=== PATIENT | male | born 1955 | race Caucasian/White ===

== ENCOUNTER → 2017-09-04 16:01 | Outpatient (CLI) | payer OTHER, SELFPAY ==
[2017-09-04 17:48] LABS: Absolute Lymphocyte Count 1.36 X10^3/ul (0.83-4.51); Absolute Neutrophil Count 4.7 X10^3/uL (2.0-7.7); Basophil# 0.03 X10^3/uL; Basophil% 0.4 % (0-1); Eosinophils% 5.5 % (0-5); Hematocrit 42.5 % (40-54); Hemoglobin 14.7 g/dl (13.0-16.5); Lymphocyte # 1.36 X10^3/ul (4.0); Lymphocyte % 18.6 % (19-41); Mean Corp Hgb Conc 34.6 g/gl (32-36); Mean Corpuscular Hgb 30.4 pg (27.0-32.0); Mean Platelet Vol. 10.3 fl (6.2-12.0); Monocyte# 0.79 X10^3/uL; Monocyte% 10.8 % (0-10); Neutrophil # 4.72 X10^3/uL (2.7-7.7); Neutrophil % 64.4 % (47-70); Platelet Count 170 K/mm3 (150-450); RBC Distribution Width CV 12.8 % (11.6-14.6); RBC Distribution Width SD 40.9 fl (35.1-43.9); Red Blood Count 4.83 M/mm3 (4.6-6.2); White Blood Count 7.3 K/mm3 (4.4-11.0)
[2017-09-04 17:57] LABS: POSITIVE COUNT NO; POSITIVE DIFFERENTIAL NO; POSITIVE MORPHOLOGY NO
[2017-09-04 17:58] LABS: PTHIN 41.1 pg/mL (18.4-80.1); Vitamin D,25 Hydroxy 39.6 ng/mL (29.95-100.01)
[2017-09-04 18:03] LABS: AST(SGOT) 23 U/L (15-37); Alanine Aminotransfer ALT/SGPT 54 U/L (16-61); Albumin, Serum 4.2 g/dL (3.2-5.0); Alkaline Phosphatase 68 U/L (45-117); Anion Gap 8 (5-15); BUN 21 mg/dL (7-18); BUN/Creat Ratio 23.8 RATIO (10-20); Bilirubin, Direct 0.13 mg/dL (0.00-0.30); Calcium,Total 8.7 mg/dL (8.5-10.1); Chloride 98 mmol/L (98-107); Cholesterol 152 mg/dL (200); Creatinine, Serum 0.88 mg/dL (0.70-1.30); EST Glomerular Filtration Rate 93 mL/min (>60); Est Glom Filt Rate - Afr Amer 113 mL/min (>60); Glucose 78 mg/dL (74-106); High Density Lipoprotein 50 mg/dL; Magnesium 2.2 mg/dL (1.6-2.6); Phosphorus 3.6 mg/dL (2.5-4.9); Potassium 3.7 mmol/L (3.5-5.1); Protein, Total 7.2 g/dL (6.4-8.2); Sodium Level 136 mmol/L (136-145); Triglycerides 123 mg/dL; Very Low Density Lipoprotein 25 mg/dL (5-40)
[2017-09-04 18:07] LABS: Protein, Urine (Random) < 6.0 mg/dL (<11.9); Protein:Creat Ratio 162 mg/g CRE (0-200)
== END ==
PROVIDERS: Family Provider Family Medicine; PCP Family Medicine; Visit Provider Internal Medicine Cardiovascular Disease
DX: E78.5 Hyperlipidemia, unspecified (principal); Z79.899 Other long term (current) drug therapy; N18.2 Chronic kidney disease, stage 2 (mild); D63.1 Anemia in chronic kidney disease; E55.9 Vitamin D deficiency, unspecified
CPT/HCPCS: 36415; 80048; 80061; 80076; 82306; 82570; 83735; 83970; 84100; 84156; 85025

== ENCOUNTER → 2017-10-25 12:35 | Outpatient (CLI) | payer OTHER, SELFPAY ==
--- NOTE | 2017-10-25 12:36 | STE_ITS ---
Reason For Study: S/P CABG Stress Results Protocol: Ki Protocol Maximum Predicted HR: 159 bpm Target HR: 135 bpm% Max imum Predicted HR: 97 % DurationHeart Rate Stage (mm:ss) (bpm) BP BASELINE 92 130/74 STAGE 1 3:00 11 0 130/72 STAGE 2 3:00 13 4 138/70 STAGE 3 3:00 15 5 142/60 RECOVERY 112 120/7 2 Stress Duration: 9:00 mm:ss Maximum Stress HR: 155 bpm Baseline Echocardiogram Findings The estimated ejection fraction is 65 %. Stress Echo Wall motion Data Resting WMIntermediate WMStress WM Resting Wall Motion Wall Motion Stress No regional wall motion No regional wall motion abnormalities noted. abnormalities noted. EKG Data The baseline ECG demonstrates normal sinus rhythm with at rate of _ beats per minute. The patient exercised according to the regular Ki protocol for a total duration of 9:01. The maximum heart rate attained was 196 beats per minute. This was 123% of maximum predicted heart rate. The patient exercised into stage 4 of the Ki protocol. During stress, there were no ST or T wave changes noted to suggest ischemia. No clinical angina was noted. Interpretation Summary The estimated ejection fraction is 65 %. Normal adequate treadmill echocardiogram. Negative for ischemia by EKG and echocardiographic criteria. No anginal symptoms noted. Rare PVC noted, self terminating burst of SVT during recovery which was asymptomatic. Appropriate blood pressure response to exercise. Average exercise capacity for age. Final LVEF of 75%. Test terminated due to target heart rate achieved and dyspnea. No complications. Ordering Physician: Shaan Brito Referring Physician: Shaan Brito Performed By: Kamila Mehta, RDCS, RVT
== END ==
PROVIDERS: Family Provider Family Medicine; PCP Family Medicine; Visit Provider Internal Medicine Cardiovascular Disease
DX: I25.10 Atherosclerotic heart disease of native coronary artery without angina pectoris (principal)
CPT/HCPCS: 93017; 93350

== ENCOUNTER → 2018-05-01 15:08 | Outpatient (CLI) | payer OTHER, SELFPAY ==
[2018-05-01 18:17] LABS: AST(SGOT) 26 U/L (15-37); Alanine Aminotransfer ALT/SGPT 47 U/L (16-61); Albumin, Serum 3.8 g/dL (3.2-5.0); Alkaline Phosphatase 68 U/L (45-117); Bilirubin, Direct 0.13 mg/dL (0.00-0.30); Globulin 3.2 g/dL (2.2-4.2)
[2018-05-01 18:21] LABS: Anion Gap 8 (5-15); BUN 19 mg/dL (7-18); BUN/Creat Ratio 20.1 RATIO (10-20); Calcium,Total 8.6 mg/dL (8.5-10.1); Chloride 102 mmol/L (98-107); Cholesterol 247 mg/dL (200); Creatinine, Serum 0.94 mg/dL (0.70-1.30); EST Glomerular Filtration Rate 86 mL/min (>60); Est Glom Filt Rate - Afr Amer 104 mL/min (>60); Glucose 78 mg/dL (74-106); High Density Lipoprotein 41 mg/dL; Potassium 3.9 mmol/L (3.5-5.1); Sodium Level 139 mmol/L (136-145); Triglycerides 146 mg/dL; Very Low Density Lipoprotein 29 mg/dL (5-40)
== END ==
PROVIDERS: Family Provider Family Medicine; PCP Family Medicine; Referring Provider Nurse Practitioner Family; Visit Provider Nurse Practitioner Family
DX: E78.5 Hyperlipidemia, unspecified (principal); Z79.899 Other long term (current) drug therapy
CPT/HCPCS: 36415; 80048; 80061; 80076

== ENCOUNTER → 2018-09-13 15:57 | Outpatient (CLI) | payer BC, SELFPAY ==
[2018-05-08 16:14] VITALS: BMI 27.6
[2018-09-13 17:43] LABS: Hematocrit 44.4 % (40-54); Hemoglobin 14.6 g/dl (13.0-16.5); Mean Corp Hgb Conc 32.9 g/gl (32-36); Mean Corpuscular Hgb 29.9 pg (27.0-32.0); Mean Corpuscular Volume 90.8 fL (80-94); Mean Platelet Vol. 10.1 fl (6.2-12.0); Platelet Count 165 K/mm3 (150-450); RBC Distribution Width SD 42.8 fl (35.1-43.9); Red Blood Count 4.89 M/mm3 (4.6-6.2); White Blood Count 6.5 K/mm3 (4.4-11.0)
[2018-09-13 18:00] LABS: Albumin, Serum 4.1 g/dL (3.2-5.0); BUN 25 mg/dL (7-18); Calcium,Total 8.7 mg/dL (8.5-10.1); Chloride 101 mmol/L (98-107); Cholesterol 180 mg/dL (200); Creatinine, Serum 1.04 mg/dL (0.70-1.30); EST Glomerular Filtration Rate 77 mL/min (>60); Est Glom Filt Rate - Afr Amer 93 mL/min (>60); Glucose 84 mg/dL (74-106); High Density Lipoprotein 52 mg/dL; Magnesium 2.2 mg/dL (1.6-2.6); Phosphorus 3.7 mg/dL (2.5-4.9); Potassium 3.9 mmol/L (3.5-5.1); Sodium Level 139 mmol/L (136-145); Triglycerides 101 mg/dL; Very Low Density Lipoprotein 20 mg/dL (5-40)
[2018-09-13 18:05] LABS: Scan Indicated on CBC? Y/N NO
[2018-09-13 18:13] LABS: Vitamin D,25 Hydroxy 19.7 ng/mL (29.95-100.01)
[2018-09-13 18:15] LABS: PTHIN 52.4 pg/mL (18.4-80.1)
[2018-09-13 18:35] LABS: Microalbumin,Random Urine 56.5 mg/L (NO RANGE EST.); Microalbumin:Creatinine Ratio 95.3 mg/g CRE (<30 mg/g CRE)
== END ==
PROVIDERS: Family Provider Family Medicine; PCP Family Medicine; Referring Provider Internal Medicine Nephrology; Visit Provider Internal Medicine Nephrology
DX: E55.9 Vitamin D deficiency, unspecified (principal); N18.2 Chronic kidney disease, stage 2 (mild); D63.1 Anemia in chronic kidney disease; E78.5 Hyperlipidemia, unspecified
CPT/HCPCS: 36415; 80061; 80069; 82043; 82306; 82570; 83735; 83970; 85027

== ENCOUNTER → 2019-04-15 17:08 | Outpatient (CLI) | payer BC, SELFPAY ==
[2019-01-11 14:23] VITALS: BMI 33.5
--- NOTE | 2019-04-15 17:11 | RAD_ITS ---
STUDY: X-RAY CHEST REASON FOR EXAM: Male, 64 years old. Cough TECHNIQUE: Frontal and lateral views of the chest were performed COMPARISON: 23 September 2014 FINDINGS: There is indistinctness/obscuration of the left cardiac border, similar to 2015 and most probably due to prior open heart surgery. There is no pneumonia, pneumothorax, pulmonary edema or pleural effusions. Cardiac size is normal. Appearance is similar to prior. RAD/Chest PA and Lateral IMPRESSION: 1. No acute findings or change since prior. 2. If high probability of acute pneumonia is present short-term repeat imaging with oblique views or CT is advised as lingular pneumonia can be missed on the current plain films. Electronically Signed: Ade Lamb, at 17:37 EDT Tel , Service support ,
== END ==
PROVIDERS: Family Provider Family Medicine; PCP Family Medicine; Referring Provider Family Medicine; Visit Provider Family Medicine
DX: R05 Cough (principal)
CPT/HCPCS: 71046

== ENCOUNTER → 2019-04-26 14:38 | Outpatient (CLI) | payer BC, SELFPAY ==
[2019-01-11 14:23] VITALS: BMI 33.5
--- NOTE | 2019-04-26 14:40 | CDU_ITS ---
Reason For Study: Bruit Rt. Velocities/BP Lt. Velocities/BP Prox CCA 110.1/18.8 cm/sec. Prox CCA 124.7/29.8 cm/sec. Mid CCA 88.2/20.6 cm/sec. Mid CCA 106.5/24.3 cm/sec. Dist CCA 87.6/20 cm/sec. Dist CCA 93.7/26.1 cm/sec. Prox ICA 61.8/13.9 cm/sec. Prox ICA 82.7/20 cm/sec. Mid ICA 77.7/28.6 cm/sec. Mid ICA 69.1/23.7 cm/sec. Dist ICA 74.1/21.2 cm/sec. Dist ICA 60.5/22.5 cm/sec. Rt. ICA/CCA = 0.9. Lt. ICA/CCA = 0.8. Prox ECA 79/15.1 cm/sec. Prox ECA 104.7/20.6 cm/sec. Rt. Vert. 47.6/15.7 cm/sec. Lt. Vert. 27.7/9.7 cm/sec. Right Extracranial There is homogeneous, smooth atherosclerotic plaque noted in the right common carotid artery. There is heterogeneous, irregular atherosclerotic plaque noted in the right internal carotid artery. There is intimal thickening but no significant atherosclerotic plaque noted in the right external carotid artery. Antegrade flow is noted in the right vertebral artery. Left Extracranial There is homogeneous, smooth atherosclerotic plaque noted in the left common carotid artery. There is heterogeneous, irregular atherosclerotic plaque noted in the left internal carotid artery. There is intimal thickening but no significant atherosclerotic plaque noted in the left external carotid artery. Antegrade flow is noted in the left vertebral artery. Procedure Carotid Duplex [id number]. Exam performed in department. Interpretation Summary Irregular plague proximal right internal carotid with <50% stenosis. <50% stenosis right external carotid Irregular plague proximal left internal carotid with <50% stenosis. <50% stenosis left external carotid Patent,antegrade, <50% stenosis bilateral vertebrals Ordering Physician: Shaan Brito Referring Physician: Kenan Hendrix MD Performed By: Carmel Tomas RVT
--- NOTE | 2019-04-26 14:40 | ECHOD_ITS ---
Reason For Study: S/P CABG Procedure This was a 2D Doppler, Color Flow transthoracic echocardiogram. Exam performed in department. Left Ventricle Normal size and thickness. The estimated ejection fraction is 60 %. Stage 1 diastolic dysfunction. No regional wall motion abnormalities noted. Right Ventricle Normal size and thickness. Normal systolic function. Atria Normal left atrium. Normal right atrium. Normal atrial septum. Mitral Valve The mitral valve is structurally normal. No prolapse or stenosis seen. Trivial mitral valve insufficiency. Tricuspid Valve Normal tricuspid valve. Mild (1+) tricuspid valve insufficiency. Right ventricular systolic pressure estimated to be 24 mmHg. Aortic Valve Trisinus/trileaflet aortic valve. Mild focal aortic valve thickening. Pulmonic Valve Normal pulmonic valve. Great Vessels Normal aortic root. Normal arch. Normal inferior vena cava. Inferior vena cava collapse with sniff. Pericardium/Pleural No pericardial effusion. MMode/2D Measurements & Calculations LVIDd: 4.5 cm IVSd: 1.1 cm Ao root diam: 4.0 cm LVIDs: 3.1 cm LVPWd: 0.96 cm LA dimension: 4.4 cm FS: 30.4 % LAV(MOD-bp): 77.8 ml LA A4 area: 23.7 cm2 RA A4 area: 17.1 cm2 LAV(MOD-bp) Indexed: 38.3 ml/m2 LAV(MOD-sp2): 73.0 ml LAV(MOD-sp4): 77.2 ml Time Measurements MV dec time: 0.22 sec Doppler Measurements & Calculations MV E max josé miguel: 60.9 cm/sec Lat Peak E' José Miguel: 8.4 cm/sec Med Peak E' José Miguel: 7.2 cm/sec MV A max josé miguel: 81.9 cm/sec E/E' lat: 7.3 E/E' med: 8.5 MV E/A: 0.74 MV V2 max: 80.9 cm/sec MV P1/2t max josé miguel: 69.9 cm/sec Ao V2 max: 107.9 cm/sec MV max P.6 mmHg MV P1/2t: 111.9 msec Ao max P.7 mmHg MV V2 mean: 45.8 cm/sec MV dec slope: 182.8 cm/sec2 Ao V2 mean: 71.4 cm/sec MV mean P.97 mmHg MVA(P1/2t): 2.0 cm2 Ao mean P.3 mmHg MV V2 VTI: 28.0 cm Ao V2 VTI: 23.8 cm LV V1 max: 88.5 cm/sec PA V2 max: 82.8 cm/sec TR max josé miguel: 217.8 cm/sec LV V1 max P.1 mmHg TR max P.0 mmHg LV V1 mean P.5 mmHg LV V1 mean: 57.5 cm/sec LV V1 VTI: 22.4 cm Interpretation Summary The estimated ejection fraction is 60 %. Stage 1 diastolic dysfunction. Trivial mitral valve insufficiency. Mild (1+) tricuspid valve insufficiency. Right ventricular systolic pressure estimated to be 24 mmHg. There is no comparison study available. Ordering Physician: Shaan Brito Referring Physician: Kenan Hendrix MD Performed By: Kian Fountain RCS
== END ==
PROVIDERS: Family Provider Family Medicine; PCP Family Medicine; Referring Provider Internal Medicine Cardiovascular Disease; Visit Provider Internal Medicine Cardiovascular Disease
DX: I25.10 Atherosclerotic heart disease of native coronary artery without angina pectoris (principal); I25.2 Old myocardial infarction; E78.5 Hyperlipidemia, unspecified; Z95.1 Presence of aortocoronary bypass graft; R09.89 Other specified symptoms and signs involving the circulatory and respiratory systems
CPT/HCPCS: 93306; 93880

== ENCOUNTER → 2019-05-03 09:07 | Outpatient (CLI) | payer BC, SELFPAY ==
[2019-01-11 14:23] VITALS: BMI 33.5
--- NOTE | 2019-05-03 09:08 | STEWCON_ITS ---
Reason For Study: S/P CABG, CAD Stress Results Protocol: Ki Protocol Maximum Predicted HR: 157 bpm Target HR: 133 bpm % Maximum Predicted HR: 90 % DurationHeart Rate Stage (mm:ss) (bpm) BP Comment Baseline 96 124/76No Chest Pain; 4 ML Diluted Definity Given Ki Protocol Stage I 3:00 105 138/66No Chest Pain Ki Protocol Stage II 3:00 120 140/60No Chest Pain Ki Protocol Stage III 3:00 141 150/62No Chest Pain Recovery 94 128/80No Chest Pain Stress Duration: 9:00 mm:ss Maximum Stress HR: 141 bpm METS: 10 Baseline Echocardiogram Findings The estimated ejection fraction is 55 %. Stress Echo Wall motion Data Resting WM Intermediate WM Stress WM Resting Wall Motion Wall Motion Stress Posterior-Basal: Mildly No regional wall motion hypokinetic. abnormalities noted. Infero-Basal: Mildly hypokinetic. EKG Data The baseline ECG displays normal sinus rhythm. The patient exercised according to the regular Ki protocol for a total duration of 9:00. The maximum heart rate attained was 151 beats per minute. This was 96% of maximum predicted heart rate. The patient exercised into stage 4 of the Ki protocol. During stress, there were no ST or T wave changes noted to suggest ischemia. No clinical angina was noted. Interpretation Summary The estimated ejection fraction is 55 %. Normal, adequate, treadmill echocardiogram. Negative for ischemia by EKG and echocardiographic anterior. No anginal symptoms noted. Rare PVC noted. Appropriate blood pressure response to exercise. Average exercise capacity for age. Patient had baseline lateral T wave inversion which had pseudonormalization during exercise with no associated wall motion abnormalities. Patient had baseline inferior posterior hypokinesis which responded well to exercise. Test terminated due to attainment of target heart rate. Final LVEF of 65%. No complications. The study was technically difficult. Contrast injection was performed. Ordering Physician: Shaan Brito Referring Physician: Kenan Hendrix Performed By: Destinee Evans, ALEXA, RVT
== END ==
PROVIDERS: Family Provider Family Medicine; PCP Family Medicine; Referring Provider Internal Medicine Cardiovascular Disease; Visit Provider Internal Medicine Cardiovascular Disease
DX: I25.10 Atherosclerotic heart disease of native coronary artery without angina pectoris (principal); E78.5 Hyperlipidemia, unspecified; I25.2 Old myocardial infarction; Z95.1 Presence of aortocoronary bypass graft
CPT/HCPCS: 93017; 93350; Q9957; A4216; C8928

== ENCOUNTER → 2019-11-16 08:54 | Outpatient (CLI) | payer BC, SELFPAY ==
[2019-11-08 14:25] VITALS: BMI 38.7
[2019-11-16 09:24] LABS: Hematocrit 43.1 % (40-54); Hemoglobin 14.6 g/dL (13.0-16.5); Mean Corp Hgb Conc 33.9 g/dL (32-36); Mean Corpuscular Hgb 30.1 pg (27.0-32.0); Mean Corpuscular Volume 88.9 fL (80-94); Mean Platelet Vol. 9.7 fl (6.2-12.0); Platelet Count 191 K/mm3 (150-450); RBC Distribution Width CV 13.5 % (11.6-14.6); RBC Distribution Width SD 44.2 fl (35.1-43.9); Red Blood Count 4.85 M/mm3 (4.6-6.2); White Blood Count 6.5 K/mm3 (4.4-11.0)
[2019-11-16 09:43] LABS: Microalbumin:Creatinine Ratio 244.3 mg/g CRE (<30 mg/g CRE)
[2019-11-16 09:48] LABS: AST(SGOT) 23 U/L (15-37); Alanine Aminotransfer ALT/SGPT 42 U/L (16-61); Albumin, Serum 3.7 g/dL (3.2-5.0); Alkaline Phosphatase 69 U/L (45-117); Anion Gap 7 (5-15); BUN 17 mg/dL (7-18); BUN/Creat Ratio 15.3 RATIO (10-20); Bilirubin, Direct 0.11 mg/dL (0.00-0.30); Calcium,Total 8.5 mg/dL (8.5-10.1); Chloride 104 mmol/L (98-107); Cholesterol 233 mg/dL (200); Creatinine, Serum 1.11 mg/dL (0.70-1.30); EST Glomerular Filtration Rate 71 mL/min (>60); Est Glom Filt Rate - Afr Amer 86 mL/min (>60); Globulin 3.3 g/dL (2.2-4.2); Glucose 105 mg/dL (74-106); High Density Lipoprotein 37 mg/dL; Phosphorus 2.5 mg/dL (2.5-4.9); Potassium 3.9 mmol/L (3.5-5.1); Sodium Level 138 mmol/L (136-145); Triglycerides 231 mg/dL; Very Low Density Lipoprotein 46 mg/dL (5-40)
[2019-11-18 08:54] LABS: PTHIN 60.8 pg/mL (18.4-80.1)
[2019-11-18 09:38] LABS: Vitamin D,25 Hydroxy 36.8 ng/mL
== END ==
PROVIDERS: Internal Medicine Cardiovascular Disease; PCP Family Medicine; Referring Provider Internal Medicine Nephrology; Visit Provider Internal Medicine Nephrology
DX: E55.9 Vitamin D deficiency, unspecified (principal); N18.2 Chronic kidney disease, stage 2 (mild); D63.1 Anemia in chronic kidney disease; E78.5 Hyperlipidemia, unspecified; I25.10 Atherosclerotic heart disease of native coronary artery without angina pectoris
CPT/HCPCS: 80048; 80061; 80076; 82043; 82306; 82570; 83735; 83970; 84100; 85027

== ENCOUNTER → 2020-06-11 09:51 | Outpatient (CLI) | payer BC, SELFPAY ==
[2019-11-08 14:25] VITALS: BMI 38.7
[2020-06-11 12:18] LABS: Hematocrit 43.8 % (40-54); Hemoglobin 14.8 g/dL (13.0-16.5); Mean Corp Hgb Conc 33.8 g/dL (32-36); Mean Corpuscular Hgb 30.5 pg (27.0-32.0); Mean Corpuscular Volume 90.3 fL (80-94); Mean Platelet Vol. 10.1 fl (6.2-12.0); Platelet Count 217 K/mm3 (150-450); RBC Distribution Width SD 46.2 fl (35.1-43.9); Red Blood Count 4.85 M/mm3 (4.6-6.2); White Blood Count 7.2 K/mm3 (4.4-11.0)
[2020-06-11 12:41] LABS: ALB/GLOB Ratio 1.1 RATIO (0.9-2.4); AST(SGOT) 25 U/L (15-37); Alanine Aminotransfer ALT/SGPT 45 U/L (16-61); Albumin, Serum 3.6 g/dL (3.2-5.0); Alkaline Phosphatase 72 U/L (45-117); Anion Gap 8 (5-15); BUN 15 mg/dL (7-18); BUN/Creat Ratio 17.1 RATIO (10-20); Bilirubin, Direct 0.14 mg/dL (0.00-0.30); Calcium,Total 8.6 mg/dL (8.5-10.1); Chloride 101 mmol/L (98-107); Cholesterol 236 mg/dL (200); Creatinine, Serum 0.88 mg/dL (0.70-1.30); EST Glomerular Filtration Rate 93 mL/min (>60); Est Glom Filt Rate - Afr Amer 113 mL/min (>60); Globulin 3.4 g/dL (2.2-4.2); Glucose 92 mg/dL (74-106); High Density Lipoprotein 40 mg/dL; Potassium 3.8 mmol/L (3.5-5.1); Sodium Level 134 mmol/L (136-145); Triglycerides 392 mg/dL; Very Low Density Lipoprotein 78 mg/dL (5-40)
[2020-06-11 12:42] LABS: Hemoglobin A1c 5.5 % (3.8-5.6)
== END ==
PROVIDERS: PCP Family Medicine; Referring Provider Family Medicine; Visit Provider Family Medicine
DX: I25.10 Atherosclerotic heart disease of native coronary artery without angina pectoris (principal); Z12.5 Encounter for screening for malignant neoplasm of prostate
CPT/HCPCS: 36415; 80053; 80061; 82043; 82248; 83036; 84153; 85027; G0103

== ENCOUNTER 2021-07-12 10:41 | Outpatient (CLI) | payer MEDICARE, SELFPAY ==
--- NOTE | 2021-07-12 10:52 | RAD_ITS ---
STUDY: X-RAY CHEST REASON FOR EXAM: Male, 66 years old. COVID PNEUMONIA TECHNIQUE: PA and lateral views of the chest. COMPARISON: 04/15/2019. FINDINGS: The lungs are clear and expanded. No new infiltrate or mass. There is no demonstrated pleural abnormality. Sternal cerclage wires are present from a prior sternotomy. The heart is normal in size. Normal mediastinum and vince. Normal visualized pulmonary arteries. Normal visualized aortic arch and descending thoracic aorta. Normal visualized thoracic spine. Normal visualized ribs, clavicles, and shoulders. There is no demonstrated abnormality of the visualized soft tissue structures of the upper abdomen. RAD/Chest PA and Lateral IMPRESSION: No acute cardiopulmonary disease or interval change Electronically Signed: Baltazar Hicks DO at 23:08 EST Tel [phone], Service support ,
== END 2021-07-12 23:59 | disposition home or self-care (01) ==
PROVIDERS: PCP Family Medicine; Referring Provider Internal Medicine Pulmonary Disease; Visit Provider Internal Medicine Pulmonary Disease
DX: U07.1 COVID-19 (principal); J12.82 Pneumonia due to coronavirus disease 2019
CPT/HCPCS: 71046

== ENCOUNTER 2021-07-13 11:21 | Outpatient (CLI) | payer MEDICARE, SELFPAY ==
[2021-07-13 11:45] VITALS: BP 140/89; PULSE 80; RESP 16; TEMP 37.1; O2SAT 99; BMI 40.3
[2021-07-13] MEDS: 0.9% Saline Lock 10 ML Syringe IV (11:52)
[2021-07-13 12:44] VITALS: BP 123/77; PULSE 71; RESP 16; TEMP 37; O2SAT 95
[2021-07-13 13:41] VITALS: BP 134/85; PULSE 68; RESP 16; TEMP 37.1; O2SAT 96
== END 2021-07-13 23:59 | disposition home or self-care (01) ==
LOC: MS3OUT 11:22 → MS3 11:22
PROVIDERS: PCP Family Medicine; Referring Provider Nurse Practitioner Adult Health; Visit Provider Nurse Practitioner Adult Health
DX: U07.1 COVID-19 (principal)
CPT/HCPCS: J7050; M0243; A4216; Q0240

== ENCOUNTER → 2022-05-05 | Outpatient (CLI) | payer MEDICARE, BC, SELFPAY ==
[2022-05-05 12:13] LABS: Hematocrit 41.7 % (40-54); Hemoglobin 14.1 g/dL (13.0-16.5); Mean Corp Hgb Conc 33.8 g/dL (32-36); Mean Corpuscular Volume 91.6 fL (80-94); Mean Platelet Vol. 9.6 fl (6.2-12.0); Platelet Count 185 K/mm3 (150-450); RBC Distribution Width CV 13.9 % (11.6-14.6); Red Blood Count 4.55 M/mm3 (4.6-6.2); White Blood Count 6.5 K/mm3 (4.4-11.0)
[2022-05-05 12:57] LABS: AST(SGOT) 26 U/L (15-37); Alanine Aminotransfer ALT/SGPT 43 U/L (16-61); Albumin, Serum 3.5 g/dL (3.2-5.0); Alkaline Phosphatase 68 U/L (45-117); Anion Gap 6 (5-15); BUN 22 mg/dL (7-18); BUN/Creat Ratio 21.8 RATIO (10-20); Calcium,Total 9.1 mg/dL (8.5-10.1); Chloride 103 mmol/L (98-107); Cholesterol 152 mg/dL (200); Creatinine, Serum 1.01 mg/dL (0.70-1.30); EST Glomerular Filtration Rate 79 mL/min (>60); Est Glom Filt Rate - Afr Amer 95 mL/min (>60); Globulin 3.4 g/dL (2.2-4.2); Glucose 110 mg/dL (74-106); High Density Lipoprotein 39 mg/dL; PSA,Total - Annual Screen 2.81 ng/mL (0.00-4.00); Potassium 4.1 mmol/L (3.5-5.1); Protein, Total 6.9 g/dL (6.4-8.2); Sodium Level 136 mmol/L (136-145); Triglycerides 219 mg/dL; Very Low Density Lipoprotein 44 mg/dL (5-40)
== END | disposition home or self-care (01) ==
LOC: MTLAB 10:57
PROVIDERS: PCP Family Medicine; Referring Provider Family Medicine; Visit Provider Family Medicine
DX: I10 Essential (primary) hypertension (principal); N18.2 Chronic kidney disease, stage 2 (mild); Z12.5 Encounter for screening for malignant neoplasm of prostate; K21.9 Gastro-esophageal reflux disease without esophagitis
CPT/HCPCS: 36415; 80053; 80061; 84153; 85027; G0103